=== PATIENT | male | born 1980 | race Caucasian/White ===

== ENCOUNTER 2024-04-20 14:13 | Outpatient (REF) | payer BC, SELFPAY ==
[2024-04-20 15:12] LABS: Erythrocyte Sedimentation Rate 2 MM/HR (0-15)
[2024-04-20 15:32] LABS: Vitamin B12 441 pg/mL (200-900)
[2024-04-21 21:57] LABS: Lyme Abs Screen <0.90 index
== END 2024-04-20 14:14 | disposition home or self-care (01) ==
LOC: HO.LAB 14:13
PROVIDERS: PCP Internal Medicine; Visit Provider Psychiatry & Neurology Neurology
DX: G93.40 Encephalopathy, unspecified (principal)
CPT/HCPCS: 36415; 82607; 85652; 86617; 86618

== ENCOUNTER 2024-04-27 19:00 | Outpatient (REF) | payer BC, SELFPAY ==
--- NOTE | ~2024-04-27 | MR_ITS ---
EXAMINATION: MR BRAIN WITHOUT IV CONTRAST HISTORY: encephalopathy TECHNIQUE: Sagittal T1, and axial T1, FLAIR, T2, gradient echo, and diffusion weighted MR images of the brain were obtained. COMPARISON: None FINDINGS: The brain parenchyma is unremarkable, demonstrating normal field/white differentiation. No foci of abnormal signal intensity are identified. The ventricular system is normal in size and configuration. There is no mass effect or midline shift. No intra or extra-axial fluid collections are identified. There are no foci of restricted diffusion. Normal vascular flow voids are noted in the basilar and carotid arteries. The visualized paranasal sinuses are clear. MR/MR head/brain wo con IMPRESSION: Unremarkable MRI of the brain without contrast. Electronically signed by: Yair Joshi MD 04/28/2024 08:37 AM [facility]
== END 2024-04-27 19:01 | disposition home or self-care (01) ==
LOC: HO.MRI 19:00
PROVIDERS: PCP Internal Medicine; Visit Provider Psychiatry & Neurology Neurology
DX: G93.40 Encephalopathy, unspecified (principal)
CPT/HCPCS: 70551

== ENCOUNTER → 2024-04-27 19:07 | Outpatient (BNV) | payer BC, SELFPAY | PROVIDERS: PCP Internal Medicine; Visit Provider Radiology Diagnostic Radiology | DX: G93.40 Encephalopathy, unspecified (principal) | CPT/HCPCS: 70551 ==